=== PATIENT | female | born 1940 | race Caucasian/White ===

== ENCOUNTER 2018-02-08 06:31 | Emergency (ER) | payer MEDICARE ==
[2018-02-08 06:43] VITALS: RESP 18
--- NOTE | 2018-02-08 07:05 | ED ---
General Adult HPI - General Stated complaint: Fall Time Seen by Provider: 02/08/18 06:32 Source: patient, EMS Mode of arrival: EMS Limitations: altered mental status, physical limitation - History of Present Illness Initial comments: 78-year-old female presents emergency Department with chief complaint of fall. Patient had an unwitnessed fall at [facility] on the [place]. Patient has no complaints though she is not exactly sure how she got on the floor. Patient is severely demented and and is therefore lower extremity weakness. Patient does take aspirin but no other blood thinners. Patient denies any headache, dizziness, neck pain, chest pain, shortness breath, nausea vomiting diarrhea constipation. Staff at [facility] did state that when they went to clean her up prior to calling EMS that she had some bright red blood in her stool. - Related Data Home Medications Medication Instructions Recorded Confirmed Acetaminophen Tab [Tylenol Tab] 500 mg PO BID@0900,2100 02/08/18 02/08/18 Aspirin EC [Ecotrin Low Dose] 81 mg PO DAILY@0900 02/08/18 02/08/18 Atorvastatin [Lipitor] 80 mg PO HS@2100 02/08/18 02/08/18 Bisoprolol Fumarate [Zebeta] 5 mg PO DAILY@0900 02/08/18 02/08/18 DULoxetine HCL [Cymbalta] 60 mg PO DAILY@0900 02/08/18 02/08/18 Divalproex Sodium [Depakote] 500 mg PO BID@0900,2100 02/08/18 02/08/18 Donepezil [Aricept] 10 mg PO HS@2100 02/08/18 02/08/18 Ferrous Sulfate [Feosol] 325 mg PO DAILY@0900 02/08/18 02/08/18 Allergies Allergy/AdvReac Type Severity Reaction Status Date / Time No Known Allergies Allergy Verified 02/08/18 07:33 Review of Systems ROS Statement: Those systems with pertinent positive or pertinent negative responses have been documented in the HPI. ROS Other: All systems not noted in ROS Statement are negative. Past Medical History Past Medical History: Dementia, Hyperlipidemia, Hypertension History of Any Multi-Drug Resistant Organisms: None Reported Past Surgical History: Unable to Obtain Past Psychological History: No Psychological Hx Reported Smoking Status: Unknown if ever smoked Past Alcohol Use History: Unable to Obtain Past Drug Use History: None Reported General Exam Limitations: altered mental status, physical limitation General appearance: alert, in no apparent distress Head exam: Present: atraumatic, normocephalic, normal inspection Eye exam: Present: normal appearance, PERRL, EOMI. Absent: scleral icterus, conjunctival injection, periorbital swelling ENT exam: Present: normal exam, normal oropharynx, mucous membranes moist Neck exam: Present: normal inspection. Absent: tenderness, meningismus, full ROM (In c-collar), lymphadenopathy Respiratory exam: Present: normal lung sounds bilaterally. Absent: respiratory distress, wheezes, rales, rhonchi, stridor Cardiovascular Exam: Present: regular rate, normal rhythm, normal heart sounds. Absent: systolic murmur, diastolic murmur, rubs, gallop, clicks GI/Abdominal exam: Present: soft, normal bowel sounds. Absent: distended, tenderness, guarding, rebound, rigid Extremities exam: Present: other (Old ecchymosis noted on right wrist region). Absent: tenderness (No noted tenderness upper or lower extremities) Back exam: Present: full ROM. Absent: paraspinal tenderness, vertebral tenderness Neurological exam: Present: alert, CN II-XII intact, reflexes normal. Absent: oriented X3, motor sensory deficit Skin exam: Present: warm, dry, intact, normal color. Absent: rash Course Vital Signs 02/08/18 02/08/18 02/08/18 06:33 07:30 09:02 Temperature 97.0 F L Pulse Rate 79 70 71 Respiratory 18 18 18 Rate Blood Pressure 176/75 162/75 140/67 O2 Sat by Pulse 97 96 97 Oximetry EKG Findings - EKG Comments: EKG Findings:: EKG was performed that 7:50 normal sinus rhythm with rate 81 MN 158 QRS 74 QT/QTC 390/453 Medical Decision Making - Medical Decision Making 78-year-old female [place] Patient has severe underlying dementia and normal weakness. She had no complaints herself. There is reports of possible blood in her stool though she is Hemoccult negative. Vitals have been stable. She denies any headache, neck pain, back pain, chest pain or shortness of breath. Patient had lab work, urinalysis, pelvis x-ray chest x-ray CT of her head neck which all within normal limits. Patient will be discharged back to [facility]. - Lab Data Result diagrams: 02/08/18 06:48 02/08/18 06:48 Lab Results 02/08/18 02/08/18 02/08/18 Range/Units 06:48 06:48 06:48 WBC 13.4 H (3.8-10.6) k/uL RBC 4.74 (3.80-5.40) m/uL Hgb 15.1 (11.4-16.0) gm/dL Hct 45.1 (34.0-46.0) % MCV 95.2 (80.0-100.0) fL MCH 31.8 (25.0-35.0) pg MCHC 33.4 (31.0-37.0) g/dL RDW 13.3 (11.5-15.5) % Plt Count 282 (150-450) k/uL Neutrophils % 85 % Lymphocytes % 7 % Monocytes % 7 % Eosinophils % 1 % Basophils % 0 % Neutrophils # 11.4 H (1.3-7.7) k/uL Lymphocytes # 0.9 L (1.0-4.8) k/uL Monocytes # 0.9 (0-1.0) k/uL Eosinophils # 0.1 (0-0.7) k/uL Basophils # 0.0 (0-0.2) k/uL PT 10.4 (9.0-12.0) sec INR 1.1 (<1.2) APTT 22.0 (22.0-30.0) sec Sodium 141 (137-145) mmol/L Potassium 4.8 (3.5-5.1) mmol/L Chloride 105 (98-107) mmol/L Carbon Dioxide 28 (22-30) mmol/L Anion Gap 8 mmol/L BUN 34 H (7-17) mg/dL Creatinine 0.90 (0.52-1.04) mg/dL Est GFR (CKD-EPI)AfAm 71 (>60 ml/min/1.73 sqM) Est GFR (CKD-EPI)NonAf 62 (>60 ml/min/1.73 sqM) Glucose 116 H (74-99) mg/dL Calcium 9.6 (8.4-10.2) mg/dL Total Bilirubin 0.7 (0.2-1.3) mg/dL AST 53 H (14-36) U/L ALT 68 H (9-52) U/L Alkaline Phosphatase 40 (38-126) U/L Troponin I (0.000-0.034) ng/mL Total Protein 6.3 (6.3-8.2) g/dL Albumin 3.6 (3.5-5.0) g/dL Stool Occult Blood (Negative) 02/08/18 02/08/18 Range/Units 06:48 09:00 WBC (3.8-10.6) k/uL RBC (3.80-5.40) m/uL Hgb (11.4-16.0) gm/dL Hct (34.0-46.0) % MCV (80.0-100.0) fL MCH (25.0-35.0) pg MCHC (31.0-37.0) g/dL RDW (11.5-15.5) % Plt Count (150-450) k/uL Neutrophils % % Lymphocytes % % Monocytes % % Eosinophils % % Basophils % % Neutrophils # (1.3-7.7) k/uL Lymphocytes # (1.0-4.8) k/uL Monocytes # (0-1.0) k/uL Eosinophils # (0-0.7) k/uL Basophils # (0-0.2) k/uL PT (9.0-12.0) sec INR (<1.2) APTT (22.0-30.0) sec Sodium (137-145) mmol/L Potassium (3.5-5.1) mmol/L Chloride (98-107) mmol/L Carbon Dioxide (22-30) mmol/L Anion Gap mmol/L BUN (7-17) mg/dL Creatinine (0.52-1.04) mg/dL Est GFR (CKD-EPI)AfAm (>60 ml/min/1.73 sqM) Est GFR (CKD-EPI)NonAf (>60 ml/min/1.73 sqM) Glucose (74-99) mg/dL Calcium (8.4-10.2) mg/dL Total Bilirubin (0.2-1.3) mg/dL AST (14-36) U/L ALT (9-52) U/L Alkaline Phosphatase (38-126) U/L Troponin I 0.013 (0.000-0.034) ng/mL Total Protein (6.3-8.2) g/dL Albumin (3.5-5.0) g/dL Stool Occult Blood Negative (Negative) Disposition Clinical Impression: Fall Disposition: HOME SELF-CARE Condition: Stable Instructions: Fall Prevention (ED) Additional Instructions: Please return to the Emergency Department if symptoms worsen or any other concerns. Is patient prescribed a controlled substance at d/c from ED?: No Referrals: Silvino Ballesteros MD [Primary Care Provider] - 1-2 days Time of Disposition: 09:15
[2018-02-08 07:11] LABS: Basophils % (A) 0 %; Eosinophils # (A) 0.1 k/uL (0-0.7); Eosinophils % (A) 1 %; HCT 45.1 % (34.0-46.0); HGB 15.1 gm/dL (11.4-16.0); Lymphocytes # (A) 0.9 k/uL (1.0-4.8); Lymphocytes % (A) 7 %; MCH 31.8 pg (25.0-35.0); MCHC 33.4 g/dL (31.0-37.0); MCV 95.2 fL (80.0-100.0); Monocytes # (A) 0.9 k/uL (0-1.0); Monocytes % (A) 7 %; Neutrophils # (A) 11.4 k/uL (1.3-7.7); Neutrophils % (A) 85 %; Platelet Count 282 k/uL (150-450); RBC 4.74 m/uL (3.80-5.40); RDW 13.3 % (11.5-15.5); WBC 13.4 k/uL (3.8-10.6)
[2018-02-08 07:22] LABS: Albumin 3.6 g/dL (3.5-5.0); Calcium 9.6 mg/dL (8.4-10.2); Total Bilirubin 0.7 mg/dL (0.2-1.3); Total Protein 6.3 g/dL (6.3-8.2)
[2018-02-08 07:29] LABS: INR 1.1 (<1.2); Prothrombin Time 10.4 sec (9.0-12.0)
[2018-02-08 07:30] LABS: Potassium 4.8 mmol/L (3.5-5.1)
--- NOTE | 2018-02-08 07:46 | CT ---
EXAMINATION TYPE: CT brain bhumi hoyos DATE OF EXAM: 02/08/2018 COMPARISON: NONE HISTORY: Fall injury with headache and neck pain. CT DLP: 1400.50 mGycm. Automated Exposure Control for Dose Reduction was Utilized. TECHNIQUE: CT scan of the head and cervical spine are performed without contrast. FINDINGS: There is no acute intracranial hemorrhage or midline shift identified. There is ventricul ar and sulcal prominence consistent with diffuse cerebral atrophy. There is low-attenuation in the pe riventricular and deep white matter most likely on basis of product of chronic small vessel ischemic change. The globes are intact and the visualized sinuses are clear. The calvarium is intact. Cervical spine is visualized in its entirety from C1 through upper thoracic levels and demonstrates s traightened alignment without evidence of acute fracture or dislocation. Entire C7 spinous process i s not included making evaluation slightly suboptimal. Prevertebral soft tissue appears within normal limits. The C1-C2 articulation is within normal limits on the coronal images. Vertebral body height s are maintained. There is moderate to advanced disc space narrowing with disc calcification and mild to moderate spurring C5-C6 and C6-C7 levels. Posterior spur disc complexes are effacing anterior the martin sac at these levels. Thyroid gland is small in size. Lung apices are minimally imaged. IMPRESSION: 1. Slightly suboptimal study without acute fracture or dislocation evident in the cervical spine. 2. No acute intracranial hemorrhage or midline shift is seen. There is background moderate diffuse ce rebral atrophy and chronic small ischemic change noted.
--- NOTE | 2018-02-08 08:31 | XR ---
EXAMINATION TYPE: XR pelvis AP view DATE OF EXAM: 02/08/2018 CLINICAL HISTORY: Fall injury with pain. TECHNIQUE: A single AP view of the pelvis is obtained. COMPARISON: None. FINDINGS: There is no acute fracture/dislocation evident in the pelvis. Metallic hardware from right hip surgery is partially imaged. There is advanced degenerative change left hip joint with marked j oint space loss as there is [id number] formation with subchondral cystic change and sclerosis, ther e is mild to moderate acetabular spurring. There is loss of normal spherical shape of the femoral hea d. Multiple bilateral pelvic phleboliths are seen extending into the upper pelvis and lower abdomen. Overlying EKG wires are noted. IMPRESSION: There is no acute fracture or dislocation in the pelvis.
--- NOTE | 2018-02-08 08:34 | XR ---
EXAMINATION TYPE: XR chest 1V DATE OF EXAM: 02/08/2018 COMPARISON: NONE HISTORY: 78-year-old female with pain TECHNIQUE: Single frontal view of the chest is obtained. FINDINGS: Slight rightward patient rotation alters the normal cardiac mediastinal contours. Heart borderline en larged. Elongation/ectasia of the thoracic aorta. Mild diffuse interstitial prominence has a chronic appearance. No laura consolidation or pleural effusion. IMPRESSION: 1. Slightly rotated exam. Borderline cardiomegaly. 2. Elongated or ectatic/aneurysmal thoracic aorta. 3. Chronic appearing changes. No definite acute process.
[2018-02-08 09:28] LABS: Appearance,Urine Cloudy (Clear); Bacteria,Urine Rare /hpf; Bilirubin,Urine Negative (Negative); Blood,Urine Small (Negative); Color,Urine Yellow; Glucose,Urine (UA) Negative (Negative); Ketones,Urine 1+ (Negative); Leukocyte Esterase,Urine Moderate (Negative); Mucus,Urine Rare /hpf; Nitrite,Urine Negative (Negative); Protein,Urine Trace (Negative); RBC,Urine 11 /hpf (0-5); Specific Gravity,Urine 1.025 (1.001-1.035); Squamous Epithelial Cell,Urine 8 /hpf (0-4); Urobilinogen,Urine <2.0 mg/dL (<2.0); WBC,Urine 12 /hpf (0-5)
[2018-02-08 09:57] VITALS: BP 158/76; PULSE 85; TEMP 98.6
== END 2018-02-08 10:35 | disposition home or self-care (01) ==
LOC: EC 06:31
DX: R53.1 Weakness (principal); S60.211D Contusion of right wrist, subsequent encounter; E78.5 Hyperlipidemia, unspecified; F03.90 Unspecified dementia, unspecified severity, without behavioral disturbance, psychotic disturbance, mood disturbance, and anxiety; I10 Essential (primary) hypertension; Z79.82 Long term (current) use of aspirin; Z79.899 Other long term (current) drug therapy; W06.XXXA Fall from bed, initial encounter; Y92.009 Unspecified place in unspecified non-institutional (private) residence as the place of occurrence of the external cause
CPT/HCPCS: 36415; 70450; 71045; 72125; 72170; 80053; 81001; 82272; 84484; 85025; 85610; 85730; 87086; 93005; 99285

== ENCOUNTER 2018-02-25 17:16 | Inpatient (IN) | payer MEDICARE ==
[2018-02-25] MEDS ORDERED: MORPHINE SULFATE 4 MG/ML SYRINGE IVP STA (17:42)
[2018-02-25] MEDS ORDERED: ONDANSETRON 4 MG/2 ML VIAL IVP STA (17:42)
--- NOTE | 2018-02-25 17:56 | ED ---
Fall HPI - General Stated Complaint: Fall Time Seen by Provider: 02/25/18 17:42 Source: patient Mode of arrival: EMS Limitations: physical limitation - History of Present Illness Initial Comments: 78-year-old female presents emergency Department with chief complaint of left hip pain, fall. Patient has been at [facility] on the leg for rehab secondary to a pelvic fracture. Patient reported he fell again today and has a left hip injury with rotation of the leg, shortening. Patient had no head injury no loss conscious denies any neck, back. Patient does have noted left hand pain. Patient does take aspirin no Coumadin, Xarelto, pradaxa, Eliquis. Patient denies any chest pain, shortness breath, syncopal episodes, nausea, vomiting, diarrhea, constipation. Patient has had a prior right hip surgery at [facility] has no local orthopedic surgeon. - Related Data Home Medications Medication Instructions Recorded Confirmed Acetaminophen Tab [Tylenol Tab] 500 mg PO BID@0900,2100 02/08/18 02/08/18 Aspirin EC [Ecotrin Low Dose] 81 mg PO DAILY@0900 02/08/18 02/08/18 Atorvastatin [Lipitor] 80 mg PO HS@2100 02/08/18 02/08/18 Bisoprolol Fumarate [Zebeta] 5 mg PO DAILY@0900 02/08/18 02/08/18 DULoxetine HCL [Cymbalta] 60 mg PO DAILY@0900 02/08/18 02/08/18 Divalproex Sodium [Depakote] 500 mg PO BID@0900,2100 02/08/18 02/08/18 Donepezil [Aricept] 10 mg PO HS@209902/08/18 02/08/18 Ferrous Sulfate [Feosol] 325 mg PO DAILY@0900 02/08/18 02/08/18 Allergies Allergy/AdvReac Type Severity Reaction Status Date / Time No Known Allergies Allergy Verified 02/08/18 07:33 Review of Systems ROS Statement: Those systems with pertinent positive or pertinent negative responses have been documented in the HPI. ROS Other: All systems not noted in ROS Statement are negative. Past Medical History Past Medical History: Dementia, Hyperlipidemia, Hypertension Additional Past Medical History / Comment(s): recent stable pelvic fracture History of Any Multi-Drug Resistant Organisms: None Reported Past Surgical History: Joint Replacement, Orthopedic Surgery Additional Past Surgical History / Comment(s): hip replacement Past Psychological History: No Psychological Hx Reported Smoking Status: Unknown if ever smoked Past Alcohol Use History: Unable to Obtain Past Drug Use History: None Reported General Exam Limitations: no limitations General appearance: alert, in no apparent distress Head exam: Present: atraumatic, normocephalic, normal inspection Eye exam: Present: normal appearance, PERRL, EOMI. Absent: scleral icterus, conjunctival injection, periorbital swelling ENT exam: Present: normal oropharynx Neck exam: Present: normal inspection, full ROM. Absent: tenderness, meningismus, lymphadenopathy Respiratory exam: Present: normal lung sounds bilaterally. Absent: respiratory distress, wheezes, rales, rhonchi, stridor Cardiovascular Exam: Present: regular rate, normal rhythm, normal heart sounds. Absent: systolic murmur, diastolic murmur, rubs, gallop, clicks GI/Abdominal exam: Present: soft, normal bowel sounds. Absent: distended, tenderness, guarding, rebound, rigid Extremities exam: Present: other (Left leg is shortened, rotated there is tenderness the left hip neurovascular intact lower extremities with equal pedal pulses, left hand there is tenderness over the fourth metacarpal region) Skin exam: Present: warm, dry Course Vital Signs 02/25/18 17:44 Temperature 97.7 F Pulse Rate 70 Respiratory 18 Rate Blood Pressure 173/74 O2 Sat by Pulse 100 Oximetry Procedures - Orthopedic Splinting/Casting Injury #1 Side: left Upper Extremity Injury Location: short arm, hand Upper Extremity Immobilizer: volar splint, synthetic pre-padded splint Disposition Clinical Impression: Fall, Left hand fracture, Hip fracture, left Disposition: ADMITTED IP TO THIS HOSP Condition: Stable Referrals: Silvino Ballesteros MD [Primary Care Provider] - 1-2 days
--- NOTE | 2018-02-25 18:50 | XR ---
EXAMINATION TYPE: XR Hip LT and AP Pelvis DATE OF EXAM: 02/25/2018 COMPARISON: 02/08/2018 HISTORY: Hip pain TECHNIQUE: A single AP view of the pelvis is obtained. Two views of the left hip are obtained. FINDINGS: Left femur. Pelvic ring shows old left superior and inferior pubic rami fractures. There i s a right hip prosthesis. Sacroiliac joints are intact. IMPRESSION: Acute intertrochanteric fracture left femur. Left pubic rami fractures are unchanged compared to 02/08 pelvis x-ray.
[2018-02-25] MEDS ORDERED: ONDANSETRON 4 MG/2 ML VIAL IVP PRN (19:11)
[2018-02-25] MEDS ORDERED: MORPHINE SULFATE 4 MG/ML SYRINGE IV PRN (19:11)
[2018-02-25] MEDS ORDERED: LORazepam 2 MG/ML INJ IV PRN (19:11)
[2018-02-25] MEDS ORDERED: NALOXONE 0.4 MG/ML 1 ML VIAL IV PRN (19:11)
--- NOTE | 2018-02-25 19:11 | XR ---
EXAMINATION TYPE: XR chest 1V DATE OF EXAM: 02/25/2018 COMPARISON: 02/08/2018 HISTORY: Hip pain TECHNIQUE: Single frontal view of the chest is obtained. FINDINGS: There is no heart failure nor confluent pneumonic infiltrate. Costophrenic angles are erin r. IMPRESSION: No active cardiopulmonary disease. No change.
--- NOTE | 2018-02-25 19:30 | XR ---
EXAMINATION TYPE: XR wrist complete LT DATE OF EXAM: 02/25/2018 COMPARISON: NONE HISTORY: Wrist pain TECHNIQUE: 4 views FINDINGS: There is an oblique fracture distal shaft of the fourth metacarpal. There is separation up to 5 mm of the fragments. There is no dislocation. Carpal bones are intact. There is narrowing and sp urring at the first carpometacarpal joint. IMPRESSION: Acute fourth metacarpal fracture.
[2018-02-25 19:46] LABS: Basophils % (A) 0 %; Eosinophils % (A) 0 %; HCT 37.3 % (34.0-46.0); HGB 12.4 gm/dL (11.4-16.0); Lymphocytes # (A) 0.7 k/uL (1.0-4.8); Lymphocytes % (A) 5 %; MCH 32.3 pg (25.0-35.0); MCHC 33.2 g/dL (31.0-37.0); MCV 97.3 fL (80.0-100.0); Mean Platelet Volume 7.4; Monocytes # (A) 0.6 k/uL (0-1.0); Monocytes % (A) 4 %; Neutrophils # (A) 12.8 k/uL (1.3-7.7); Neutrophils % (A) 91 %; Platelet Count 162 k/uL (150-450); RBC 3.84 m/uL (3.80-5.40); RDW 14.5 % (11.5-15.5); WBC 14.2 k/uL (3.8-10.6)
[2018-02-25 20:00] LABS: Albumin 3.4 g/dL (3.5-5.0); Calcium 8.8 mg/dL (8.4-10.2); Potassium 3.7 mmol/L (3.5-5.1); Total Bilirubin 0.7 mg/dL (0.2-1.3); Total Protein 5.7 g/dL (6.3-8.2)
[2018-02-25 20:08] LABS: INR 1.2 (<1.2); Prothrombin Time 11.3 sec (9.0-12.0)
[2018-02-25 20:15] LABS: Partial Thromboplastin Time 21.8 sec (22.0-30.0)
[2018-02-25] MEDS: HYDROcodone/APAP 5-325MG 1 EACH TAB PO PRN (20:27)
[2018-02-25] MEDS: DIVALPROEX 500 MG TABLET.DR PO SCH (23:17)
[2018-02-25] MEDS: DONEPEZIL 10 MG TAB PO SCH (23:17)
[2018-02-25] MEDS: ATORVASTATIN 80 MG TAB PO SCH (23:17)
[2018-02-25 23:49] LABS: Appearance,Urine Clear (Clear); Bilirubin,Urine Negative (Negative); Blood,Urine Negative (Negative); Color,Urine Yellow; Glucose,Urine (UA) Negative (Negative); Ketones,Urine 2+ (Negative); Leukocyte Esterase,Urine Large (Negative); Mucus,Urine Occasional /hpf; Nitrite,Urine Negative (Negative); PH, Urine 5.5 (5.0-8.0); Protein,Urine 1+ (Negative); RBC,Urine 5 /hpf (0-5); Specific Gravity,Urine 1.024 (1.001-1.035); Squamous Epithelial Cell,Urine <1 /hpf (0-4); Urobilinogen,Urine <2.0 mg/dL (<2.0); WBC,Urine 38 /hpf (0-5)
[2018-02-26] MEDS: BISOPROLOL 5 MG TAB PO SCH (08:58)
[2018-02-26] MEDS: DULoxetine HCL 60 MG CAPSULE.DR PO SCH (08:58)
[2018-02-26] MEDS: FERROUS SULFATE 325 MG TAB PO SCH (08:58)
[2018-02-26] MEDS: DIVALPROEX 500 MG TABLET.DR PO SCH ×2 (08:58→20:37)
[2018-02-26] MEDS: HYDROcodone/APAP 5-325MG 1 EACH TAB PO PRN ×2 (11:35→20:36)
[2018-02-26] MEDS ORDERED: clonazePAM 0.5 MG TAB PO PRN (12:00)
--- NOTE | 2018-02-26 17:14 | P.CNOR ---
History of Present Illness - HPI Consult date: 02/26/18 History of present illness: This is a 78-year-old female who was admitted after a fall that occurred at an inpatient rehabilitation center on 02/25/2018. Patient has a history of dementia and is a poor historian. History is obtained from the patient's nurse. No family is present in the room. Patient is at an extended care facility due to a left pelvic fracture and had another fall causing a left hip fracture. X-rays from the emergency room also show a fracture of the left hand. Patient denies any pain in the head or neck. Patient denies any numbness , weakness or tingling. Review of Systems See HPI. Past Medical History Past Medical History: Cancer, Dementia, Hyperlipidemia, Hypertension Additional Past Medical History / Comment(s): recent stable pelvic fracture. ankle fractures. breast cancer. essential tremors. History of Any Multi-Drug Resistant Organisms: None Reported Past Surgical History: Joint Replacement, Orthopedic Surgery Additional Past Surgical History / Comment(s): Rt. hip replacement Additional Past Anesthesia/Blood Transfusion Reaction / Comm: per daughter...pt gets anxious, aggressive after anesthesia Past Psychological History: No Psychological Hx Reported Smoking Status: Never smoker Past Alcohol Use History: Unable to Obtain Past Drug Use History: None Reported Medications and Allergies Home Medications Medication Instructions Recorded Confirmed Type Acetaminophen Tab [Tylenol Tab] 500 mg PO BID@0900,209902/08/18 02/25/18 History Aspirin EC [Ecotrin Low Dose] 81 mg PO DAILY@89902/08/18 02/25/18 History Atorvastatin [Lipitor] 80 mg PO HS@209902/08/18 02/25/18 History Bisoprolol Fumarate [Zebeta] 5 mg PO DAILY@89902/08/18 02/25/18 History DULoxetine HCL [Cymbalta] 60 mg PO DAILY@89902/08/18 02/25/18 History Donepezil [Aricept] 10 mg PO HS@209902/08/18 02/25/18 History Ferrous Sulfate [Feosol] 325 mg PO DAILY@89902/08/18 02/25/18 History clonazePAM [KlonoPIN] 0.5 mg PO BID PRN 02/25/18 02/25/18 History Allergies Allergy/AdvReac Type Severity Reaction Status Date / Time No Known Allergies Allergy Verified 02/25/18 19:17 Physical Examination On exam patient is lying in bed in no acute distress. Patient has a history of dementia. Left lower extremity is shortened and externally rotated. Dorsalis pedis pulse 2+. Left lower extremity is warm and well perfused. There is to palpation over the left hip. On exam of the left hand there is ecchymosis and swelling to the ulnar aspect of the left hand. There is tenderness to palpation of the left hand. Patient has full passive range of motion of the fingers of the left hand. Sensation intact. Left upper extremity is warm and well perfused. Neurovascular status and circulatory status are intact. Exam of the head, neck, right upper extremity and right lower extremity within normal limits. Results X-rays of the left wrist needed 02/25/2018 showing a displaced fracture of the fourth metacarpal. X-rays of the left hip and pelvis show a displaced intratrochanteric fracture of the left femur. There is also a healing left inferior pubic rami fracture. - Labs Labs: Abnormal Lab Results - Last 24 Hours (Table) 02/25/18 02/25/18 02/25/18 Range/Units 17:30 17:30 17:30 WBC 14.2 H (3.8-10.6) k/uL Neutrophils # 12.8 H (1.3-7.7) k/uL Lymphocytes # 0.7 L (1.0-4.8) k/uL INR 1.2 H (<1.2) APTT 21.8 L (22.0-30.0) sec Chloride 113 H (98-107) mmol/L BUN 22 H (7-17) mg/dL Glucose 109 H (74-99) mg/dL ALT 56 H (9-52) U/L Alkaline Phosphatase 131 H (38-126) U/L Total Protein 5.7 L (6.3-8.2) g/dL Albumin 3.4 L (3.5-5.0) g/dL Urine Protein (Negative) Urine Ketones (Negative) Ur Leukocyte Esterase (Negative) Urine WBC (0-5) /hpf Urine Mucus (None) /hpf 02/25/18 Range/Units 23:10 WBC (3.8-10.6) k/uL Neutrophils # (1.3-7.7) k/uL Lymphocytes # (1.0-4.8) k/uL INR (<1.2) APTT (22.0-30.0) sec Chloride (98-107) mmol/L BUN (7-17) mg/dL Glucose (74-99) mg/dL ALT (9-52) U/L Alkaline Phosphatase (38-126) U/L Total Protein (6.3-8.2) g/dL Albumin (3.5-5.0) g/dL Urine Protein 1+ H (Negative) Urine Ketones 2+ H (Negative) Ur Leukocyte Esterase Large H (Negative) Urine WBC 38 H (0-5) /hpf Urine Mucus Occasional H (None) /hpf H & H 02/25/18 Range/Units 17:30 Hgb 12.4 (11.4-16.0) gm/dL Hct 37.3 (34.0-46.0) % Coagulation 02/25/18 Range/Units 17:30 INR 1.2 H (<1.2) Result Diagrams: 02/25/18 17:30 02/25/18 17:30 Assessment and Plan (1) Fall Current Visit: Yes Status: Acute Code(s): W19.XXXA - UNSPECIFIED FALL, INITIAL ENCOUNTER SNOMED Code(s): 1782793 (2) Hip fracture, left Current Visit: Yes Status: Acute Code(s): S72.002A - FRACTURE OF UNSP PART OF NECK OF LEFT FEMUR, INIT SNOMED Code(s): 710231706 (3) Left hand fracture Current Visit: Yes Status: Acute Code(s): S62.92XA - UNSP FRACTURE OF LEFT WRIST AND HAND, INIT FOR CLOS FX SNOMED Code(s): 03074882 Plan: 1. Maintain splint to left upper extremity. Nonweightbearing to the left upper extremity. 2. Nonweightbearing left lower extremity. 3. SCDs and DORA hose for DVT prophylaxis. 4. NPO after midnight. 5. Closed reduction and intramedullary hip screw fixation of the left hip planned pending medical clearance and consent. .
--- NOTE | 2018-02-26 17:18 | P.HPOR ---
History of Present Illness H&P Date: 02/26/18 This is a 78-year-old female who was admitted after a fall that occurred at an inpatient rehabilitation center on 02/25/2018. Patient has a history of dementia and is a poor historian. History is obtained from the patient's nurse. No family is present in the room. Patient is at an extended care facility due to a left pelvic fracture and had another fall causing a left hip fracture. X-rays from the emergency room also show a fracture of the left hand. Patient denies any pain in the head or neck. Patient denies any numbness , weakness or tingling. Review of Systems See HPI. Past Medical History Past Medical History: Cancer, Dementia, Hyperlipidemia, Hypertension Additional Past Medical History / Comment(s): recent stable pelvic fracture. ankle fractures. breast cancer. essential tremors. History of Any Multi-Drug Resistant Organisms: None Reported Past Surgical History: Joint Replacement, Orthopedic Surgery Additional Past Surgical History / Comment(s): Rt. hip replacement Additional Past Anesthesia/Blood Transfusion Reaction / Comment(s): per daughter...pt gets anxious, aggressive after anesthesia Past Psychological History: No Psychological Hx Reported Smoking Status: Never smoker Past Alcohol Use History: Unable to Obtain Past Drug Use History: None Reported Medications and Allergies Home Medications Medication Instructions Recorded Confirmed Type Acetaminophen Tab [Tylenol Tab] 500 mg PO BID@0900,209902/08/18 02/25/18 History Aspirin EC [Ecotrin Low Dose] 81 mg PO DAILY@89902/08/18 02/25/18 History Atorvastatin [Lipitor] 80 mg PO HS@209902/08/18 02/25/18 History Bisoprolol Fumarate [Zebeta] 5 mg PO DAILY@89902/08/18 02/25/18 History DULoxetine HCL [Cymbalta] 60 mg PO DAILY@89902/08/18 02/25/18 History Donepezil [Aricept] 10 mg PO HS@209902/08/18 02/25/18 History Ferrous Sulfate [Feosol] 325 mg PO DAILY@89902/08/18 02/25/18 History clonazePAM [KlonoPIN] 0.5 mg PO BID PRN 02/25/18 02/25/18 History Allergies Allergy/AdvReac Type Severity Reaction Status Date / Time No Known Allergies Allergy Verified 02/25/18 19:17 Physical Examination On exam patient is lying in bed in no acute distress. Patient has a history of dementia. Left lower extremity is shortened and externally rotated. Dorsalis pedis pulse 2+. Left lower extremity is warm and well perfused. There is to palpation over the left hip. On exam of the left hand there is ecchymosis and swelling to the ulnar aspect of the left hand. There is tenderness to palpation of the left hand. Patient has full passive range of motion of the fingers of the left hand. Sensation intact. Left upper extremity is warm and well perfused. Neurovascular status and circulatory status are intact. Exam of the head, neck, right upper extremity and right lower extremity within normal limits. Results X-rays of the left wrist needed 02/25/2018 showing a displaced fracture of the fourth metacarpal. X-rays of the left hip and pelvis show a displaced intratrochanteric fracture of the left femur. There is also a healing left inferior pubic rami fracture. - Labs Labs: Abnormal Lab Results - Last 24 Hours (Table) 02/25/18 02/25/18 02/25/18 Range/Units 17:30 17:30 17:30 WBC 14.2 H (3.8-10.6) k/uL Neutrophils # 12.8 H (1.3-7.7) k/uL Lymphocytes # 0.7 L (1.0-4.8) k/uL INR 1.2 H (<1.2) APTT 21.8 L (22.0-30.0) sec Chloride 113 H (98-107) mmol/L BUN 22 H (7-17) mg/dL Glucose 109 H (74-99) mg/dL ALT 56 H (9-52) U/L Alkaline Phosphatase 131 H (38-126) U/L Total Protein 5.7 L (6.3-8.2) g/dL Albumin 3.4 L (3.5-5.0) g/dL Urine Protein (Negative) Urine Ketones (Negative) Ur Leukocyte Esterase (Negative) Urine WBC (0-5) /hpf Urine Mucus (None) /hpf 02/25/18 Range/Units 23:10 WBC (3.8-10.6) k/uL Neutrophils # (1.3-7.7) k/uL Lymphocytes # (1.0-4.8) k/uL INR (<1.2) APTT (22.0-30.0) sec Chloride (98-107) mmol/L BUN (7-17) mg/dL Glucose (74-99) mg/dL ALT (9-52) U/L Alkaline Phosphatase (38-126) U/L Total Protein (6.3-8.2) g/dL Albumin (3.5-5.0) g/dL Urine Protein 1+ H (Negative) Urine Ketones 2+ H (Negative) Ur Leukocyte Esterase Large H (Negative) Urine WBC 38 H (0-5) /hpf Urine Mucus Occasional H (None) /hpf H & H 02/25/18 Range/Units 17:30 Hgb 12.4 (11.4-16.0) gm/dL Hct 37.3 (34.0-46.0) % Coagulation 02/25/18 Range/Units 17:30 INR 1.2 H (<1.2) Result Diagrams: 02/25/18 17:30 02/25/18 17:30 Assessment and Plan (1) Fall Current Visit: Yes Status: Acute Code(s): W19.XXXA - UNSPECIFIED FALL, INITIAL ENCOUNTER SNOMED Code(s): 7501054 (2) Hip fracture, left Current Visit: Yes Status: Acute Code(s): S72.002A - FRACTURE OF UNSP PART OF NECK OF LEFT FEMUR, INIT SNOMED Code(s): 463369816 (3) Left hand fracture Current Visit: Yes Status: Acute Code(s): S62.92XA - UNSP FRACTURE OF LEFT WRIST AND HAND, INIT FOR CLOS FX SNOMED Code(s): 82196593 Plan: 1. Maintain splint to left upper extremity. Nonweightbearing to the left upper extremity. 2. Nonweightbearing left lower extremity. 3. SCDs and DORA hose for DVT prophylaxis. 4. NPO after midnight. 5. Closed reduction and intramedullary hip screw fixation of the left hip planned pending medical clearance and consent. .
--- NOTE | 2018-02-26 17:54 | CONS ---
CONSULTATION DATE OF CONSULTATION: 02/26/2018 REASON FOR CONSULTATION: Medical management requested by Dr. Coley. CONSULTATION: This is a 78-year-old patient who is currently a resident of [facility]. Chronic stable medical conditions include dementia, hypertension, hyperlipidemia, essential tremor. The patient recently had a left pubic rami fracture. The patient lost her balance apparently and fell, now has a left femur intertrochanteric fracture. Because of dementia, the patient is able answer simple questions, but cannot really give more detailed history. No other family members present at the present time. The patient of course activity is limited. Denies any chest pain or shortness of breath. REVIEW OF SYSTEMS: CONSTITUTIONAL: None. HEENT: None. RESPIRATORY: None. CARDIOVASCULAR: None. GASTROINTESTINAL: None. GENITOURINARY: None. MUSCULOSKELETAL: Pain in the left hip. DERMATOLOGICAL: None. LYMPHATIC: None. PSYCHIATRY: Forgetful NEUROLOGICAL: None. PAST MEDICAL HISTORY: Dementia, hyperlipidemia, hypertension, recent left pubic rami fracture, ankle fracture, breast cancer, essential tremor. PAST SURGICAL HISTORY: Right hip replacement. SOCIAL HISTORY: No smoking, no alcohol. Currently a resident of [facility]. HOME MEDICATIONS: 1. Klonopin 0.5 p.o. b.i.d. p.r.n. 2. Iron 325 p.o. daily. 3. Aricept 10 mg p.o. q.h.s. 4. Cymbalta 60 mg p.o. daily. 5. Zebeta 5 mg p.o. daily. 6. Lipitor 80 mg q.h.s. 7. Aspirin 81 mg p.o. daily. 8. Tylenol 500 mg p.o. b.i.d. ALLERGIES: None. EXAMINATION: Temperature 97.5 pulse 58, respirations 16, blood pressure 154/69, pulse ox 92% on room air. GENERAL APPEARANCE: Average build, lying in bed, awake, comfortable. EYES: Pupils equal. Conjunctivae normal. HEENT: External nose and ears normal. Oral cavity normal. NECK: JVD not raised as above. RESPIRATORY: Effort normal. Lungs are clear. CARDIOVASCULAR: First and second sounds normal. No edema. ABDOMEN: Soft, nontender. Liver and spleen not palpable. LYMPHATIC: No lymph nodes palpable in neck or axillae. PSYCHIATRY: Patient knows her name, but does not know where she is or why she is here. NEUROLOGICAL: Pupils equal. No facial asymmetry. Power, sensation grossly intact. MUSCULOSKELETAL: Limited range of motion of the left hip. INVESTIGATIONS: White count 14.2, hemoglobin 12.4. Potassium 3.7, BUN 22, creatinine 0.95. Albumin 3.4. UA showing some leuko esterase, WBCs less than 1. Chest x-ray clear. EKG shows nonspecific findings. ASSESSMENT: 1. Left femur intertrochanteric fracture secondary to fall. 2. Recent left pubic rami fracture. 3. Possible acute urinary tract infection from cystitis. 4. Major cognitive impairment from Alzheimer dementia, late onset type. 5. Hyperlipidemia. 6. Essential hypertension. 7. Essential tremor. 8. Depression, not otherwise specified. PLAN: Home medications will be resumed. Will give Lovenox for DVT prophylaxis. Given her age, patient is a higher risk of medical complications. Otherwise, there is no absolute contraindication to proceed for surgery. The patient's beta melvin should be continued. MMODL / IJN: [id number] /
[2018-02-26] MEDS: ENOXAPARIN 40 MG/0.4 ML SYRINGE SQ SCH (18:12)
[2018-02-26] MEDS: DONEPEZIL 10 MG TAB PO SCH (20:37)
[2018-02-26] MEDS: ATORVASTATIN 80 MG TAB PO SCH (20:37)
[2018-02-27] MEDS: DULoxetine HCL 60 MG CAPSULE.DR PO SCH (08:44)
[2018-02-27] MEDS: ENOXAPARIN 40 MG/0.4 ML SYRINGE SQ SCH (08:44)
[2018-02-27] MEDS: DIVALPROEX 500 MG TABLET.DR PO SCH ×2 (08:44→21:03)
[2018-02-27] MEDS: FERROUS SULFATE 325 MG TAB PO SCH (08:45)
[2018-02-27] MEDS: BISOPROLOL 5 MG TAB PO SCH (08:46)
[2018-02-27] MEDS ORDERED: LACTATED RINGERS 1,000 ML IV ONE (09:05)
[2018-02-27] MEDS ORDERED: MIDAZOLAM 2 MG/2 ML VIAL ONE (09:44)
[2018-02-27] MEDS ORDERED: PHENYLEPHRINE-0.9% NACL SYG 1 MG/10 ML SYRINGE ONE (09:44)
[2018-02-27] MEDS ORDERED: KETAMINE 10 MG/ML 20 ML VIAL ONE (09:44)
[2018-02-27] MEDS ORDERED: SODIUM CHLORIDE 0.9% 50 ML with ceFAZolin 2,000 MG IV ONE ×2 (09:44)
[2018-02-27] MEDS ORDERED: HYDROcodone/APAP 5-325MG 1 EACH TAB PO PRN ×2 (11:03)
[2018-02-27] MEDS ORDERED: NALOXONE 0.4 MG/ML 1 ML VIAL IV PRN (11:03)
[2018-02-27] MEDS ORDERED: HYDROmorphone 1 MG/ML 1 ML SYRINGE IVP PRN ×3 (11:03)
[2018-02-27] MEDS ORDERED: MAGNESIUM HYDROXIDE 2,400 MG/10 ML CUP PO PRN (11:03)
--- NOTE | 2018-02-27 11:15 | FL ---
FLUOROSCOPY 1 minute and 5 seconds of fluoroscopy time were utilized during dynamic hip pinning of the left hip. 2 images document the procedure.
--- NOTE | 2018-02-27 11:21 | P.OP ---
Date of Procedure: 02/27/18 Preoperative Diagnosis: Four-part intertrochanteric fracture left hip Postoperative Diagnosis: Four-part intertrochanteric fracture left hip Procedure(s) Performed: Close reduction and intramedullary hip screw fixation of the left hip Implants: [employer] intertan nail 125, 11.5 mm x 18 cm. [employer] Intertan integrated interlocking lag screw, 95 mm lag screw, 90 mm compression screw. [employer] L-P screw, 5.0 mm x 32.5 mm. Anesthesia: spinal Surgeon: Jasvir Wall Education Assistant #1: Carmen Velazquez Estimated Blood Loss (ml): 100 Pathology: none sent Condition: stable Disposition: PACU Indications for Procedure: This is a 78-year-old female that fell and sustained a four-part intertrochanteric fracture of her left hip. The patient has dementia and the case was discussed at length with her daughter. Her discussing the surgical nonsurgical treatment options including the possible complications, the daughters agreed for a close reduction and intramedullary hip screw fixation of the left hip. Informed consent was obtained. Operative Findings: The operative findings are consistent with a four-part intertrochanteric fracture of the left hip Description of Procedure: The patient was seen in the preoperative area, consent was reviewed, and the operative site was marked with a skin marker. The patient was brought to the operating room and placed on the operating room table. Anesthesia was administered by the anesthesia department. 2 g of Ancef were administered intravenously. The patient was placed supine on the fracture table with the fractured extremity in traction boot. His other extremity was placed in a well leg correia and his bony prominences were padded. A universal timeout was then performed which confirmed the patient's name, surgical site, ALLERGIES, and consent. Fracture reduction was performed with traction and adduction maneuver which was confirmed with fluoroscopy. After reduction was performed, the extremity was then prepped and draped in the usual sterile fashion. Utilizing fluoroscopy to identify the tip of the greater trochanter, a 3 cm incision was made just proximal to the greater trochanter. Utilizing a curved awl, the starting hole was created at the tip of the greater trochanter and centralized in the AP plane. These locations were confirmed by fluoroscopy. Guidewire was then inserted down the medullary canal. Sequentially reaming of the femur was performed to 13 mm distally and 17 mm proximally. After reaming, appropriate size nail was inserted over the guidewire. The nail was inserted to the appropriate depth and the guidewire was removed. The lag screw targeting device was placed in the jig and a small skin incision was made and the targeting guide was placed down to bone. Utilizing the distally threaded guidewire, the guidewire was placed in the appropriate position in the femoral head, both anterior, posterior and mediolateral. Next, the drill for the second screw was then placed through the guide and drilled to the appropriate depth. The guidewire was measured and the appropriate depth was then reamed. The final size screw was placed to the appropriate depth. Traction was released and the fracture site was compressed with the aid of the second screw. The proximal drill guide was then removed and the distal drill guide was then inserted in the jig. Skin incision was made down to bone and the distal drill guide was then placed. Distal hole was then drilled and measured to the appropriate depth. Distal screw was then placed. The entire jig was then removed and final fluoroscopic x-rays were obtained. The wounds were then irrigated copiously with saline solution. Fascia was closed with 0-Vicryl. Subcutaneous tissues were closed with 2-0 Vicryl and the skin was closed with luigi. Sterile dressings were applied. The patient was transported to the recovery room in stable condition. The bar assistant DALE Benton was required due the complexity of surgery the need for skilled emergency medicine physician assistant for positioning draping retraction and fracture reduction.
[2018-02-27 12:39] LABS: Basophils % (A) 0 %; Eosinophils # (A) 0.1 k/uL (0-0.7); Eosinophils % (A) 1 %; HCT 31.3 % (34.0-46.0); Lymphocytes # (A) 0.9 k/uL (1.0-4.8); Lymphocytes % (A) 10 %; MCH 32.2 pg (25.0-35.0); MCHC 33.1 g/dL (31.0-37.0); MCV 97.3 fL (80.0-100.0); Mean Platelet Volume 7.4; Monocytes # (A) 0.5 k/uL (0-1.0); Monocytes % (A) 5 %; Neutrophils # (A) 7.7 k/uL (1.3-7.7); Neutrophils % (A) 83 %; Platelet Count 125 k/uL (150-450); RBC 3.22 m/uL (3.80-5.40); RDW 14.8 % (11.5-15.5); WBC 9.3 k/uL (3.8-10.6)
[2018-02-27 12:42] LABS: HGB 10.4 gm/dL (11.4-16.0)
[2018-02-27] MEDS: SODIUM CHLORIDE 0.9% 1,000 ML IV SCH (13:11)
--- NOTE | 2018-02-27 14:14 | XR ---
EXAMINATION TYPE: XR Hip Limited LT DATE OF EXAM: 02/27/2018 COMPARISON: NONE HISTORY: 78-year-old female postop evaluation TECHNIQUE: Portable AP view FINDINGS: Images show placement of antegrade intermedullary nailing across the intertrochanteric region with hi p screw fixation. There is moderate to severe overall degenerative change at the left hip. Left-sided pubic rami fractures not well seen due to overlying artifacts. Alignment grossly anatomic. Soft tiss ue air and lateral proximal thigh skin luigi relating to recent operation. IMPRESSION: 1. Uncomplicated postoperative appearance left ischial fracture internal fixation. 2. Known left-sided pubic rami fractures not well seen due to external artifact.
[2018-02-27] MEDS: HYDROcodone/APAP 5-325MG 1 EACH TAB PO PRN ×2 (15:46→21:04)
[2018-02-27] MEDS: ceFAZolin IN SWFI 2 GM/20 ML SYRINGE IVP SCH (15:46)
[2018-02-27 16:37] LABS: Glucose,Whole Blood 120 mg/dL (75-99)
--- NOTE | 2018-02-27 20:55 | PN ---
PROGRESS NOTE DATE OF SURGERY: 02/27/2018 PRESENT COMPLAINT: Left hip fracture. INTERVAL HISTORY: Patient is status post left hip fracture, had just come back when I saw the patient. Lethargic from anesthesia. Sitter at the bedside. The patient appears comfortable. REVIEW OF SYSTEMS: Cannot be obtained as the patient is sleepy postop. CURRENT MEDICATIONS: Reviewed and include IV Kefzol and Xarelto. PHYSICAL EXAMINATION: VITAL SIGNS: Temperature 98, pulse 71, respiration 16, blood pressure 100/56, pulse ox 98% on 2 L. GENERAL APPEARANCE: Lying in bed, tired-appearing, lethargic but arousable. EYES: Pupils are equal. Conjunctivae normal. HEENT: External appearance of nose and ears normal. Oral cavity normal. NECK: JVD unable to assess. Mass not palpable. RESPIRATORY: Effort normal. LUNGS fair entry. CARDIOVASCULAR: 1st and 2nd sounds normal. No edema. ABDOMEN: Soft, nontender. Liver and spleen not palpable. PSYCHIATRY: Unable to assess. The patient is lethargic from surgery. INVESTIGATIONS: Hemoglobin is 10.4. ASSESSMENT: 1. Left femur IT fracture secondary to fall followed by IM screw. 2. Recent left pubic rami fracture. 3. Acute urinary tract infection from cystitis. 4. Major cognitive impairment from Alzheimer's dementia, late onset type with no behavioral disturbance. 5. Hyperlipidemia. 6. Essential hypertension. 7. Essential tremor. 8. Depression, not otherwise specified. PLAN: Patient is on Xarelto for DVT prophylaxis. Continue current medication and treatment plan. MMODL / IJN: [id number] /
[2018-02-27] MEDS: DONEPEZIL 10 MG TAB PO SCH (21:03)
[2018-02-27] MEDS: ATORVASTATIN 80 MG TAB PO SCH (21:03)
[2018-02-27] MEDS: SENNOSIDES-DOCUSATE SODIUM 1 EACH TAB PO SCH (21:03)
[2018-02-28] MEDS: ceFAZolin IN SWFI 2 GM/20 ML SYRINGE IVP SCH (00:26)
[2018-02-28] MEDS: SODIUM CHLORIDE 0.9% 1,000 ML IV SCH (08:30)
--- NOTE | 2018-02-28 08:41 | P.PN ---
Subjective Progress Note Date: 02/28/18 This is a 78-year-old female who is status post closed reduction and intramedullary hip screw fixation of the left hip. This is postoperative day # 1. Patient has a history of dementia and is a poor historian. Per the nurse's , the patient has been taking her splint off the left hand. No events overnight. Patient denies any fever/chills, numbness, weakness, tingling, abdominal pain, shortness of breath or chest pain. Objective - Vital Signs Vital signs: Vital Signs Temp 98.4 F 02/28/18 05:00 Pulse 89 02/28/18 05:00 Resp 16 02/28/18 05:00 BP 131/80 02/28/18 05:00 Pulse Ox 94 L 02/28/18 05:00 Intake & Output 02/27/18 02/28/18 02/28/18 18:59 06:59 18:59 Intake Total 400 1740 Output Total 700 400 Balance -300 1340 Intake: IV 400 Intake, IV Titration 1040 Amount Sodium Chloride 0.9% 1, 1040 000 ml @ 65 mls/hr IV . [id number] [facility] Rx#:[id number] Oral 0 700 Output: Urine 600 400 Uretheral (Gonzalez) 400 Estimated Blood Loss 100 Other: Voiding Method Indwelling Catheter Indwelling Catheter # Voids 1 - Exam On exam patient is lying comfortably in bed in no acute distress. Dressing is clean, dry and intact. There is mild soft tissue swelling over the left hip. Calf is soft and nontender to palpation. Patient has full foot and ankle motion without pain or difficulty. Left lower extremity is warm and well perfused. There is ecchymosis over the left hand. Skin is intact. Capillary refill is normal at less than 2 seconds. Sensation intact. Neurovascular status and circulatory status are intact. - Labs CBC & Chem 7: 02/27/18 11:56 02/25/18 17:30 Labs: Abnormal Lab Results - Last 24 Hours (Table) 02/27/18 02/27/18 Range/Units 11:56 16:06 RBC 3.22 L (3.80-5.40) m/uL Hgb 10.4 L (11.4-16.0) gm/dL Hct 31.3 L (34.0-46.0) % Plt Count 125 L (150-450) k/uL Lymphocytes # 0.9 L (1.0-4.8) k/uL POC Glucose (mg/dL) 120 H (75-99) mg/dL Assessment and Plan (1) Fall Current Visit: Yes Status: Acute Code(s): W19.XXXA - UNSPECIFIED FALL, INITIAL ENCOUNTER SNOMED Code(s): 5032734 (2) Hip fracture, left Current Visit: Yes Status: Acute Code(s): S72.002A - FRACTURE OF UNSP PART OF NECK OF LEFT FEMUR, INIT SNOMED Code(s): 350303456 (3) Left hand fracture Current Visit: Yes Status: Acute Code(s): S62.92XA - UNSP FRACTURE OF LEFT WRIST AND HAND, INIT FOR CLOS FX SNOMED Code(s): 86142192 Plan: 1. Splint is reapplied and neurovascular status is rechecked and is intact. Maintain splint to left upper extremity. Nonweightbearing to the left upper extremity. Will obtain a brace. 2. 50% weightbearing to the left lower extremity with walker. 3. Physical therapy today. 4. Xarelto for DVT prophylaxis. 5. Appreciate input from medicine. 6. Likely discharge to rehab in the near future. .
[2018-02-28] MEDS: DIVALPROEX 500 MG TABLET.DR PO SCH ×2 (08:42→20:23)
[2018-02-28] MEDS: BISOPROLOL 5 MG TAB PO SCH (08:42)
[2018-02-28] MEDS: DULoxetine HCL 60 MG CAPSULE.DR PO SCH (08:42)
[2018-02-28] MEDS: RIVAROXABAN 10 MG TAB PO SCH (08:43)
[2018-02-28] MEDS: FERROUS SULFATE 325 MG TAB PO SCH (08:43)
--- NOTE | 2018-02-28 20:05 | PN ---
PROGRESS NOTE DATE OF SERVICE: 02/28/2018 PRESENTING COMPLAINT: Left hip fracture. INTERVAL HISTORY: Patient is status post left hip fracture and repair. Lying in bed. Did tolerate her breakfast. Comfortable. REVIEW OF SYSTEMS: Attempted for constitutional, cardiovascular, GI, pulmonary; relevant findings as above. CURRENT MEDICATIONS: Reviewed. They include Xarelto. PHYSICAL EXAMINATION: Temperature 98.4, pulse 89, respiration 16, blood pressure 131/80, pulse ox 94% on room air. GENERAL APPEARANCE: Lying in bed, awake. EYES: Pupils equal. Conjunctivae normal. HEENT: External appearance of nose and ears normal. Oral cavity normal. NECK: JVD not raised. Mass not palpable. RESPIRATORY: Effort normal. LUNGS: Fair air entry. CARDIOVASCULAR: First and second sounds normal. No edema. ABDOMEN: Soft, non-tender. Liver and spleen not palpable. PSYCHIATRY: Answering some questions. INVESTIGATIONS: No blood work from today. ASSESSMENT: 1. Left femur intertrochanteric fracture secondary to fall followed by intramedullary screw. 2. Recent left pubic rami fracture. 3. Acute urinary tract infection from cystitis. 4. Major cognitive impairment from Alzheimer's dementia, late onset type, with no behavioral disturbance. 5. Hyperlipidemia. 6. Essential hypertension. 7. Essential tremor. 8. Depression not otherwise specified. Social workers are looking into placement. Will give 3 more days of Keflex. MMODL / IJN: [id number] /
[2018-02-28] MEDS: DONEPEZIL 10 MG TAB PO SCH (20:23)
[2018-02-28] MEDS: SENNOSIDES-DOCUSATE SODIUM 1 EACH TAB PO SCH (20:23)
[2018-02-28] MEDS: ATORVASTATIN 80 MG TAB PO SCH (20:23)
[2018-02-28] MEDS: CEPHALEXIN 250 MG CAP PO SCH (20:24)
[2018-03-01] MEDS: FERROUS SULFATE 325 MG TAB PO SCH (09:05)
[2018-03-01] MEDS: CEPHALEXIN 250 MG CAP PO SCH ×3 (09:05→20:24)
[2018-03-01] MEDS: RIVAROXABAN 10 MG TAB PO SCH (09:05)
[2018-03-01] MEDS: DIVALPROEX 500 MG TABLET.DR PO SCH ×2 (09:05→20:24)
[2018-03-01] MEDS: DULoxetine HCL 60 MG CAPSULE.DR PO SCH (09:05)
[2018-03-01] MEDS: BISOPROLOL 5 MG TAB PO SCH (09:05)
[2018-03-01] MEDS ORDERED: traMADol 50 MG TAB PO PRN (09:42)
[2018-03-01 10:18] LABS: Basophils % (A) 0 %; Eosinophils # (A) 0.1 k/uL (0-0.7); Eosinophils % (A) 1 %; HCT 26.7 % (34.0-46.0); Lymphocytes # (A) 0.8 k/uL (1.0-4.8); Lymphocytes % (A) 11 %; MCH 30.7 pg (25.0-35.0); MCHC 31.6 g/dL (31.0-37.0); MCV 97.1 fL (80.0-100.0); Mean Platelet Volume 8.1; Monocytes # (A) 0.3 k/uL (0-1.0); Monocytes % (A) 5 %; Neutrophils # (A) 5.5 k/uL (1.3-7.7); Neutrophils % (A) 81 %; Platelet Count 108 k/uL (150-450); RBC 2.75 m/uL (3.80-5.40); RDW 14.8 % (11.5-15.5); WBC 6.8 k/uL (3.8-10.6)
[2018-03-01 10:22] LABS: HGB 8.4 gm/dL (11.4-16.0)
[2018-03-01] MEDS: ACETAMINOPHEN TAB 325 MG TAB PO PRN ×2 (11:06→13:48)
[2018-03-01] MEDS: SENNOSIDES-DOCUSATE SODIUM 1 EACH TAB PO SCH (20:23)
[2018-03-01] MEDS: ATORVASTATIN 80 MG TAB PO SCH (20:23)
[2018-03-01] MEDS: DONEPEZIL 10 MG TAB PO SCH (20:24)
--- NOTE | 2018-03-02 00:36 | PN ---
PROGRESS NOTE DATE OF SERVICE: 03/01/2018 PRESENTING COMPLAINT: Left hip fracture. INTERVAL HISTORY: Patient is status post left hip fracture repair. Lying in bed. Tolerating a diet. Comfortable. No new issues. Pending inpatient rehab. Apparently, cannot go back to [place]. REVIEW OF SYSTEMS: Attempted for constitutional, cardiovascular, GI, pulmonary, the patient is somewhat reluctant with history sometimes. CURRENT MEDICATIONS: Reviewed. PHYSICAL EXAMINATION: VITAL SIGNS: Temperature 96.8, pulse 95, respiratory rate 16, blood pressure 127/64, pulse ox 93% on room air. GENERAL APPEARANCE: Lying in bed, awake. EYES: Pupils are equal. Conjunctivae normal. HEENT: External appearance of nose and ears normal. Oral cavity normal. NECK: JVD not raised. Mass not palpable. RESPIRATORY: Effort normal. Lungs are clear. CARDIOVASCULAR: 1st and 2nd sounds normal. No edema. ABDOMEN: Soft, nontender. Liver and spleen not palpable. PSYCHIATRY: Awake, does answer simple questions. INVESTIGATIONS: White count 6.8, hemoglobin 8.4. ASSESSMENT: 1. Left femur IT fracture secondary to fall followed by IM screw. 2. Recent left pubic rami fracture. 3. Acute urinary tract infection from cystitis. 4. Major cognitive impairment from Alzheimer's dementia, late onset type with no behavior disturbance. 5. Hyperlipidemia. 6. Essential hypertension. 7. Essential tremor. 8. Depression, not otherwise specified. 9. Acute blood-loss anemia as expected from surgery. PLAN: Continue current medication and treatment plan. Awaiting placement. MMODL / IJN: [id number] /
[2018-03-02] MEDS: BISOPROLOL 5 MG TAB PO SCH (08:46)
[2018-03-02] MEDS: CEPHALEXIN 250 MG CAP PO SCH ×3 (08:46→20:27)
[2018-03-02] MEDS: DULoxetine HCL 60 MG CAPSULE.DR PO SCH (08:46)
[2018-03-02] MEDS: FERROUS SULFATE 325 MG TAB PO SCH (08:46)
[2018-03-02] MEDS: RIVAROXABAN 10 MG TAB PO SCH (08:46)
[2018-03-02] MEDS: DIVALPROEX 500 MG TABLET.DR PO SCH ×2 (08:46→20:27)
[2018-03-02] MEDS: HYDROcodone/APAP 5-325MG 1 EACH TAB PO PRN ×2 (08:52→20:27)
--- NOTE | 2018-03-02 09:02 | P.DS ---
Providers Date of admission: 02/25/18 19:08 Expected date of discharge: 03/01/18 Attending physician: Jasvir Wall Consults: 02/25/18 19:11 Consult Physician Stat Consulting Provider: Erasto Garnett Consult Reason/Comments: Surgical clearance Do you want consulting provider notified?: Yes Primary care physician: Silvino Ballesteros - Discharge Diagnosis(es) (1) Fall Current Visit: Yes Status: Acute (2) Hip fracture, left Current Visit: Yes Status: Acute (3) Left hand fracture Current Visit: Yes Status: Acute Hospital Course: This is a 78-year-old female who sustained a left hip fracture after a fall on 02/25/2018. The patient also sustained a fracture of the fourth metacarpal of the left hand. The patient was admitted for orthopedic evaluation through the emergency room. Patient has a history of dementia. After discussion and consideration the patient's family elect to proceed with closed reduction and intramedullary hip screw fixation of the left hip. The patient is seen preoperatively by Dr. Wall and medically cleared for surgery by internal medicine. Patient is admitted to [facility] on 02/25/2018 for closed reduction and intramedullary hip screw fixation of the left hip. The procedures performed without complication or sequelae. The patient is doing well postoperatively. A brace is obtained for the patient's left hand fracture. Labs and vital signs are stable on day of discharge. On day of discharge patient's hip incision is healing well. There is minimal erythema. There is no drainage noted at this time. There is minimal soft tissue swelling to the hip and thigh. Patient has full foot and ankle motion without difficulty or pain. There is ecchymosis to the patient's left hand. Brace is intact. Skin is intact. Capillary refill is normal at less than 2 seconds. Neurovascular status to the left lower extremity and left upper extremity is intact. Patient is discharged to rehab in good condition. Please see med rec for accurate list of home medications. Patient Condition at Discharge: Stable Plan - Discharge Summary New Discharge Prescriptions: New Acetaminophen Tab [Tylenol Tab] 1 - 2 tab PO Q8H PRN #90 tablet PRN Reason: Pain Rivaroxaban [Xarelto] 10 mg PO DAILY #30 tab Sennosides [Senokot] 1 tab PO BID #60 tablet traMADol HCl [Ultram] 50 mg PO Q6H PRN #28 tab PRN Reason: Pain No Action Atorvastatin [Lipitor] 80 mg PO HS@2100 Acetaminophen Tab [Tylenol Tab] 500 mg PO BID@0900,2099 Ferrous Sulfate [Feosol] 325 mg PO DAILY@0900 DULoxetine HCL [Cymbalta] 60 mg PO DAILY@0900 Bisoprolol Fumarate [Zebeta] 5 mg PO DAILY@0900 Donepezil [Aricept] 10 mg PO HS@2100 Aspirin EC [Ecotrin Low Dose] 81 mg PO DAILY@0900 clonazePAM [KlonoPIN] 0.5 mg PO BID PRN PRN Reason: Anxiety Discharge Medication List Acetaminophen Tab [Tylenol Tab] 500 mg PO BID@0900,209902/08/18 [History] Aspirin EC [Ecotrin Low Dose] 81 mg PO DAILY@0902/08/18 [History] Atorvastatin [Lipitor] 80 mg PO HS@209902/08/18 [History] Bisoprolol Fumarate [Zebeta] 5 mg PO DAILY@0902/08/18 [History] DULoxetine HCL [Cymbalta] 60 mg PO DAILY@89902/08/18 [History] Donepezil [Aricept] 10 mg PO HS@209902/08/18 [History] Ferrous Sulfate [Feosol] 325 mg PO DAILY@89902/08/18 [History] clonazePAM [KlonoPIN] 0.5 mg PO BID PRN 02/25/18 [History] Acetaminophen Tab [Tylenol Tab] 1 - 2 tab PO Q8H PRN #90 tablet 03/01/18 [Rx] Rivaroxaban [Xarelto] 10 mg PO DAILY #30 tab 03/01/18 [Rx] Sennosides [Senokot] 1 tab PO BID #60 tablet 03/01/18 [Rx] traMADol HCl [Ultram] 50 mg PO Q6H PRN #28 tab 03/01/18 [Rx] Follow up Appointment(s)/Referral(s): Silvino Ballesteros MD [Primary Care Provider] - 1-2 days Jasvir Wall DO [Doctor of Osteopathic Medicine] - 2 Weeks Activity/Diet/Wound Care/Special Instructions: hospital bed and wheel chair at [facility] - must call when the pt is d/c. 50% weightbearing to the left lower extremity with a walker. May shower after 2 days if no drainage from the incision. Daily dressing changes. [place] to be removed in 10-14 days. Maintain brace to left hand with rikki tape of the ring finger and little finger. Nonweightbearing to the left upper extremity. Follow-up with [facility] in 2 weeks with any questions or concerns, Please call with any questions or concerns, Discharge Disposition: TRANSFER TO SNF/ECF
--- NOTE | 2018-03-02 09:06 | P.PN ---
Subjective Progress Note Date: 03/02/18 This is a 78-year-old female who is status post closed reduction and intramedullary hip screw fixation of the left hip. This is postoperative day # 3. Patient has a history of dementia and is a poor historian. Per nursing patient has been tolerating her left wrist brace well. Per the nurse's, patient has struggled with physical therapy and has difficulty sitting on her own. Patient's discharge was postponed due to rehab placement. Patient denies any fever/chills, numbness, weakness, tingling, abdominal pain, shortness of breath or chest pain. Objective - Vital Signs Vital signs: Vital Signs Temp 97.7 F 03/02/18 06:01 Pulse 80 03/02/18 06:01 Resp 18 03/02/18 06:01 BP 117/55 03/02/18 06:01 Pulse Ox 95 03/02/18 06:01 Intake & Output 03/01/18 03/02/18 03/02/18 18:59 06:59 18:59 Output Total 450 Balance -450 Output: Urine 450 Other: Voiding Method Indwelling Catheter Diaper Incontinent # Voids 1 # Bowel Movements 0 - Exam On exam patient is lying comfortably in bed in no acute distress. Incisions are clean, dry and intact. Calf is soft and nontender to palpation. Patient has full foot and ankle motion without pain or difficulty. Left lower extremity is warm and well perfused. There is ecchymosis over the left hand. Skin is intact. Capillary refill is normal at less than 2 seconds. Sensation intact. Neurovascular status and circulatory status are intact. - Labs CBC & Chem 7: 03/01/18 09:30 02/25/18 17:30 Labs: Abnormal Lab Results - Last 24 Hours (Table) 03/01/18 Range/Units 09:30 RBC 2.75 L (3.80-5.40) m/uL Hgb 8.4 L D (11.4-16.0) gm/dL Hct 26.7 L (34.0-46.0) % Plt Count 108 L (150-450) k/uL Lymphocytes # 0.8 L (1.0-4.8) k/uL Assessment and Plan (1) Fall Current Visit: Yes Status: Acute Code(s): W19.XXXA - UNSPECIFIED FALL, INITIAL ENCOUNTER SNOMED Code(s): 0226255 (2) Hip fracture, left Current Visit: Yes Status: Acute Code(s): S72.002A - FRACTURE OF UNSP PART OF NECK OF LEFT FEMUR, INIT SNOMED Code(s): 792336961 (3) Left hand fracture Current Visit: Yes Status: Acute Code(s): S62.92XA - UNSP FRACTURE OF LEFT WRIST AND HAND, INIT FOR CLOS FX SNOMED Code(s): 77029193 Plan: 1. Maintain brace to left hand. May remove for hygiene if needed. Ice and elevate the left hand. Nonweightbearing to the left hand. 2. 50% weightbearing to the left lower extremity with walker. 3. Physical therapy today. 4. Xarelto for DVT prophylaxis. 5. Appreciate input from medicine. 6. Likely discharge to rehab in the near future. .
[2018-03-02] MEDS: ACETAMINOPHEN TAB 325 MG TAB PO PRN (15:53)
[2018-03-02] MEDS: SENNOSIDES-DOCUSATE SODIUM 1 EACH TAB PO SCH (20:26)
[2018-03-02] MEDS: ATORVASTATIN 80 MG TAB PO SCH (20:27)
[2018-03-02] MEDS: DONEPEZIL 10 MG TAB PO SCH (20:27)
--- NOTE | 2018-03-02 22:13 | PN ---
PROGRESS NOTE DATE OF SERVICE: 03/02/2018 PRESENTING COMPLAINT: Left hip fracture. INTERVAL HISTORY: Patient is status post left hip fracture. Comfortable. Tolerating a diet. No new issues. Pending transfer to rehab. Per the nurse, patient has a stage II sacral decubitus. REVIEW OF SYSTEMS: Attempted for constitutional, cardiovascular, GI, pulmonary. Patient is limited in what history she gives. CURRENT MEDICATIONS: Reviewed. PHYSICAL EXAMINATION: Temperature 98.5, pulse 71, respiration 20, blood pressure 122/59, pulse ox 97% on room air. GENERAL APPEARANCE: Lying in bed, awake. EYES: Pupils equal. Conjunctivae normal. HEENT: External appearance of nose and ears normal. Oral cavity normal. NECK: JVD not raised. Mass not palpable. RESPIRATORY: Effort normal. Lungs are clear. CARDIOVASCULAR: First and second sounds normal. No edema. ABDOMEN: Soft, non-tender. Liver and spleen not palpable. PSYCHIATRY: Patient does answer simple questions. INVESTIGATIONS: White count 6.8, hemoglobin 8.4. ASSESSMENT: 1. Left femur intertrochanteric fracture secondary to fall followed by intramedullary screw. 2. Recent left pubic rami fracture. 3. Acute urinary tract infection from cystitis. 4. Major cognitive impairment from Alzheimer's dementia, late-onset type, with no behavioral disturbance. 5. Hyperlipidemia. 6. Essential hypertension. 7. Essential tremor. 8. Depression not otherwise specified. 9. Acute blood loss anemia, expected from surgery. 10.Sacral decubitus ulcer, stage II. PLAN: Continue current medication and treatment plan. Care was discussed with the nurse. Decubitus ulcer care as directed. Awaiting placement. MMODL / IJN: [id number] /
[2018-03-02 23:17] VITALS: RESP 16
[2018-03-03 06:23] VITALS: BP 143/71; PULSE 83; TEMP 97.5
--- NOTE | 2018-03-03 09:11 | P.DS ---
Providers Date of admission: 02/25/18 19:08 Attending physician: Jasvir Wall Consults: 02/25/18 19:11 Consult Physician Stat Consulting Provider: Erasto Garnett Consult Reason/Comments: Surgical clearance Do you want consulting provider notified?: Yes Primary care physician: Silvino Ballesteros - Discharge Diagnosis(es) (1) Fall Current Visit: Yes Status: Acute (2) Hip fracture, left Current Visit: Yes Status: Acute (3) Left hand fracture Current Visit: Yes Status: Acute Hospital Course: This is a 78-year-old female who sustained a left hip fracture after a fall on 02/25/2018. The patient also sustained a fracture of the fourth metacarpal of the left hand. The patient was admitted for orthopedic evaluation through the emergency room. Patient has a history of dementia. After discussion and consideration the patient's family elect to proceed with closed reduction and intramedullary hip screw fixation of the left hip. The patient is seen preoperatively by Dr. Wall and medically cleared for surgery by internal medicine. Patient is admitted to [facility] on 02/25/2018 and closed reduction and intramedullary hip screw fixation of the left hip is performed on 2017. The procedures performed without complication or sequelae. The patient is doing well postoperatively. A brace is obtained for the patient's left hand fracture. Labs and vital signs are stable on day of discharge. On day of discharge patient's hip incision is healing well. There is minimal erythema. There is no drainage noted at this time. There is minimal soft tissue swelling to the hip and thigh. Patient has full foot and ankle motion without difficulty or pain. There is ecchymosis to the patient's left hand. Brace is intact. Skin is intact. Capillary refill is normal at less than 2 seconds. Neurovascular status to the left lower extremity and left upper extremity is intact. Patient is discharged to rehab in good condition. Please see med rec for accurate list of home medications. Patient Condition at Discharge: Stable Plan - Discharge Summary New Discharge Prescriptions: New Acetaminophen Tab [Tylenol Tab] 1 - 2 tab PO Q8H PRN #90 tablet PRN Reason: Pain Rivaroxaban [Xarelto] 10 mg PO DAILY #30 tab Sennosides [Senokot] 1 tab PO BID #60 tablet traMADol HCl [Ultram] 50 mg PO Q6H PRN #28 tab PRN Reason: Pain No Action Atorvastatin [Lipitor] 80 mg PO HS@2100 Acetaminophen Tab [Tylenol Tab] 500 mg PO BID@0900,2099 Ferrous Sulfate [Feosol] 325 mg PO DAILY@0900 DULoxetine HCL [Cymbalta] 60 mg PO DAILY@0900 Bisoprolol Fumarate [Zebeta] 5 mg PO DAILY@0900 Donepezil [Aricept] 10 mg PO HS@2100 Aspirin EC [Ecotrin Low Dose] 81 mg PO DAILY@0900 clonazePAM [KlonoPIN] 0.5 mg PO BID PRN PRN Reason: Anxiety Discharge Medication List Acetaminophen Tab [Tylenol Tab] 500 mg PO BID@0900,209902/08/18 [History] Aspirin EC [Ecotrin Low Dose] 81 mg PO DAILY@0902/08/18 [History] Atorvastatin [Lipitor] 80 mg PO HS@209902/08/18 [History] Bisoprolol Fumarate [Zebeta] 5 mg PO DAILY@0902/08/18 [History] DULoxetine HCL [Cymbalta] 60 mg PO DAILY@89902/08/18 [History] Donepezil [Aricept] 10 mg PO HS@209902/08/18 [History] Ferrous Sulfate [Feosol] 325 mg PO DAILY@89902/08/18 [History] clonazePAM [KlonoPIN] 0.5 mg PO BID PRN 02/25/18 [History] Acetaminophen Tab [Tylenol Tab] 1 - 2 tab PO Q8H PRN #90 tablet 03/01/18 [Rx] Rivaroxaban [Xarelto] 10 mg PO DAILY #30 tab 03/01/18 [Rx] Sennosides [Senokot] 1 tab PO BID #60 tablet 03/01/18 [Rx] traMADol HCl [Ultram] 50 mg PO Q6H PRN #28 tab 03/01/18 [Rx] Follow up Appointment(s)/Referral(s): Silvino Ballesteros MD [Primary Care Provider] - 1-2 days Jasvir Wall DO [Doctor of Osteopathic Medicine] - 2 Weeks Activity/Diet/Wound Care/Special Instructions: 50% weightbearing to the left lower extremity with a walker. May shower after 2 days if no drainage from the incision. Daily dressing changes. [place] to be removed in 10-14 days. Maintain brace to left hand. May be removed for skin checks and hygiene. Nonweightbearing to the left upper extremity. Follow-up with [facility] in 2 weeks with any questions or concerns, Please call with any questions or concerns, Discharge Disposition: TRANSFER TO SNF/ECF
[2018-03-03] MEDS: BISOPROLOL 5 MG TAB PO SCH (10:50)
[2018-03-03] MEDS: FERROUS SULFATE 325 MG TAB PO SCH (10:50)
[2018-03-03] MEDS: DIVALPROEX 500 MG TABLET.DR PO SCH (10:50)
[2018-03-03] MEDS: CEPHALEXIN 250 MG CAP PO SCH (10:50)
[2018-03-03] MEDS: DULoxetine HCL 60 MG CAPSULE.DR PO SCH (10:50)
[2018-03-03] MEDS: RIVAROXABAN 10 MG TAB PO SCH (10:50)
[2018-03-03 11:21] VITALS: BMI 25.5
[2018-03-03] MEDS: HYDROcodone/APAP 5-325MG 1 EACH TAB PO PRN (12:00)
--- NOTE | 2018-03-03 23:05 | PN ---
PROGRESS NOTE DATE OF SERVICE: 03/03/2018 PRESENTING COMPLAINT: Left hip fracture. INTERVAL HISTORY: Patient is status post left hip fracture. Comfortable. Lying in bed. Tolerating a diet. Patient does not talk much but is comfortable. REVIEW OF SYSTEMS: Attempted for constitutional, cardiovascular, GI, pulmonary, musculoskeletal. CURRENT MEDICATIONS: Reviewed. PHYSICAL EXAMINATION: Temperature 97.5, pulse 83, respiration 16, blood pressure 143/71, pulse ox 93%. GENERAL APPEARANCE: Lying in bed, awake, comfortable. EYES: Pupils equal. Conjunctivae normal. HEENT: External appearance of nose and ears normal. Oral cavity normal. NECK: JVD not raised. Mass not palpable. RESPIRATORY: Effort normal. Lungs are clear. CARDIOVASCULAR: First and second sounds normal. No edema. ABDOMEN: Soft. Liver and spleen not palpable. PSYCHIATRY: Patient does answer simple questions. DERMATOLOGICAL: Per Nursing, patient has a stage II lower back ulcer. INVESTIGATIONS: White count 6.8, hemoglobin 8.4. ASSESSMENT: 1. Left femur intertrochanteric fracture secondary to fall followed by intramedullary screw. 2. Recent left pubic rami fracture. 3. Acute urinary tract infection from cystitis. 4. Major cognitive impairment from Alzheimer's dementia, late-onset type with no behavior disturbance. 5. Essential hypertension. 6. Essential tremor. 7. Depression not otherwise specified. 8. Acute blood loss anemia, expected from surgery. 9. Sacral decubitus ulcer, stage II. PLAN: Continue current medication and treatment plan. Patient is going to inpatient rehab. Patient is medically stable. MMODL / IJN: [id number] /
--- NOTE | 2018-03-04 14:56 | CDI ---
Documentation Clarification Form Date: 03/04/2018 2:45:07 PM From: BREANNA Andrade; Thania Hull Load Out Worker Phone: If you have a question about this query, please contact Thania Hull Load Out Worker at [phone] between 8am and 5pm Admit Date: 02/25/2018 7:08:00 PM Patient Name: Velma Puentes Visit Number: [id number] Discharge Date: 03/03/2018 ATTENTION: The Clinical Documentation Specialists (CDI) and [facility] Coding Staff appreciate your assistance in clarifying documentation. Please respond to the clarification below the line at the bottom and electronically sign. The CDI & [facility] Coding staff will review the response and follow-up if needed. Please note: Queries are made part of the Legal Health Record. If you have any questions, please contact the author of this message via ITS. Erasto Rosenthal MD The following has been documented in your progress notes: Sacral decubitus ulcer , stage II. History/Risk Factors: Presented with hip fracture and subsequently had intramedullary nailing. Current status of resident in rehab for healing pelvic fracture. Definition of Present on Admission (POA): A diagnosis present at the time the order for admission to inpatient status was written. For each diagnosis, documentation must be clear to determine if the condition was present at the time of the patients inpatient admission or developed during the hospital stay. Please clarify as to whether the stage II decubitus ulcer was: Y = Yes, the condition was present at the time of the order for inpatient admission. N = No, the condition was not present at the time of the order for inpatient admission. W = Clinically undetermined if the condition was present at the time of the order for inpatient admission. ___stage 2 decubitus ulcer/sacrum = W MTDD
== END 2018-03-03 15:35 | DRG 956 ==
LOC: EC 17:16 → 5MS5E 19:08
PROVIDERS: ADMIT Orthopaedic Surgery; ATTEND Orthopaedic Surgery
PROC: 0QS736Z Reposition Left Upper Femur with Intramedullary Internal Fixation Device, Percutaneous Approach (ICD-10-PCS; principal; 2018-02-27 10:00)
DX: S72.142A Displaced intertrochanteric fracture of left femur, initial encounter for closed fracture (principal); S32.9XXA Fracture of unspecified parts of lumbosacral spine and pelvis, initial encounter for closed fracture; D62 Acute posthemorrhagic anemia; E78.5 Hyperlipidemia, unspecified; F02.80 Dementia in other diseases classified elsewhere, unspecified severity, without behavioral disturbance, psychotic disturbance, mood disturbance, and anxiety; F32.9 Major depressive disorder, single episode, unspecified; G25.0 Essential tremor; G30.1 Alzheimer's disease with late onset; I10 Essential (primary) hypertension; L89.152 Pressure ulcer of sacral region, stage 2; N30.90 Cystitis, unspecified without hematuria; S62.305A Unspecified fracture of fourth metacarpal bone, left hand, initial encounter for closed fracture; W01.0XXA Fall on same level from slipping, tripping and stumbling without subsequent striking against object, initial encounter; Z79.82 Long term (current) use of aspirin; Z79.899 Other long term (current) drug therapy; Z85.3 Personal history of malignant neoplasm of breast; Z96.641 Presence of right artificial hip joint
CPT/HCPCS: 29125; 36415; 71045; 73501; 73502; 80053; 81001; 85025; 85610; 85730; 86850; 86900; 86901; 93005; 96374; 96375; 99285